=== PATIENT | male | born 1940 | race Caucasian/White ===

== ENCOUNTER 2017-03-24 14:43 | Inpatient (IN) | payer MEDICARE, OTHER ==
[~2017-03-24] VITALS: Ht 182.9 cm; Wt 76.8 kg
[2017-03-24 15:44] LABS: UDS - AMPHET NEGATIVE QUAL (NEGATIVE); UDS - BARB NEGATIVE QUAL (NEGATIVE); UDS - BENZO NEGATIVE QUAL (NEGATIVE); UDS - COCAINE NEGATIVE QUAL (NEGATIVE); UDS - METH NEGATIVE QUAL (NEGATIVE); UDS - OPIATE NEGATIVE QUAL (NEGATIVE); UDS - PCP NEGATIVE QUAL (NEGATIVE); UDS - THC NEGATIVE QUAL (NEGATIVE)
[2017-03-24 15:54] LABS: APPEARANCE HAZY (CLEAR); COLOR YELLOW (YELLOW); LEUKOCYTE ESTERASE 2+ (NEGATIVE); NITRITE NEGATIVE (NEGATIVE); PROTEIN TRACE mg/dL (NEGATIVE)
[2017-03-24 15:55] LABS: AMORPHOUS SEDIMENT <1+ /lpf (NONE SEEN); BACTERIA MODERATE /hpf (NONE SEEN); BILIRUBIN NEGATIVE (NEGATIVE); EPITHELIAL CELLS 0-5 /hpf (0-5); GLUCOSE NEGATIVE (NEGATIVE); KETONE NEGATIVE (NEGATIVE); RED CELLS - URINE 0-5 /hpf (0-5); UROBILINOGEN NORMAL (NORMAL)
[2017-03-24 16:03] LABS: BASOPHILS 0.4 % (0-2); EOSINOPHILS 1.6 % (0-7); HEMATOCRIT 33.6 % (42.0-54.0); HEMOGLOBIN 11.1 g/dL (13.5-17.5); IMMATURE GRANULOCYTES 0.2 % (0-5); LYMPHOCYTES 12.1 % (15-50); MCH 31.2 pg (26.0-34.0); MCV 94.4 fL (80.0-100.0); MEAN PLATELET VOLUME 11.1 fL (7.4-10.4); MONOCYTES 9.4 % (2-11); NEUTROPHILS 76.3 % (40-80); PLATELET COUNT 171 10x3/uL (130-400); RBC 3.56 10x6/uL (4.20-6.10); RDW 13.5 % (11.5-14.5); WBC 5.6 10x3/uL (4.8-10.8)
[2017-03-24 16:23] LABS: ALBUMIN 2.8 g/dL (3.4-5.0); ANION GAP 9.3 mmol/L (8-16); BILIRUBIN - TOTAL 0.23 mg/dL (0.2-1.3); CALCIUM 8.4 mg/dL (8.5-10.1); CARBON DIOXIDE 32.1 mmol/L (21.0-32.0); CREATININE - SERUM 1.4 mg/dL (0.6-1.3); POTASSIUM - SERUM 3.4 mmol/L (3.5-5.1); PROTEIN - SERUM 5.7 g/dL (6.4-8.2)
[2017-03-24 18:53] VITALS: BP 114/53; BMI 22.4
--- NOTE | 2017-03-24 19:30 | NUR ---
PATIENT ADMITTED TO [facility] FROM [facility], HE LIVES AT THE [facility], HIS DAUGHTER IS ROCÍO. PATIENT IS SEDATED ON ARRIVAL ON A STRETCHER, ASSISTED TO A BED BY STAFF IN HIS ROOM, REMOVED HIS WRIST WATCH AND A CHECK BOOK AND TWO PAPER CARDS AND GAVE TO HUGH. PATIENT IS UNKEMPT, HE IS DEMENTED WITH PARKINSON'S. ADMITTED FOR SUICIDAL IDEATIONS, DROVE W/C INTO TRAFFIC ON [employer] BY THE [facility]. PATIENT IS DEPRESSED AND HAS A LOT OF ANGER PER DAUGHTER.
[2017-03-24] MEDS ORDERED: LIPITOR80 MG PO (19:41)
[2017-03-24] MEDS ORDERED: BAYER CHEWABLE81 MG PO (19:41)
[2017-03-24] MEDS ORDERED: BUPROPION HCL100 MG PO (19:42)
[2017-03-24] MEDS ORDERED: DOK100 MG PO (19:43)
[2017-03-24] MEDS ORDERED: COREG 3.1253.125 MG PO (19:43)
[2017-03-24] MEDS ORDERED: MIDODRINE HCL10 MG PO (19:44)
[2017-03-24] MEDS ORDERED: FLORINEF 0.1 M0.1 MG PO (19:44)
[2017-03-24] MEDS ORDERED: NIACIN250 M1 PO (19:44)
[2017-03-24] MEDS ORDERED: DESERYL100 MG PO (19:45)
[2017-03-24] MEDS ORDERED: OMEPRAZOLE20 M1 PO (19:45)
[2017-03-24] MEDS ORDERED: RIVASTIGMINE1.5 MG PO (19:46)
[2017-03-24] MEDS ORDERED: VITAMIN B-12500 MC1 PO (19:46)
[2017-03-24] MEDS ORDERED: ZANAFLEX2 M1 PO (19:47)
[2017-03-24] MEDS ORDERED: ULTRAM50 MG PO (19:47)
[2017-03-24] MEDS ORDERED: ZOLOFT50 MG PO (19:49)
[2017-03-24] MEDS ORDERED: ARICEPT10 MG PO (19:49)
--- NOTE | 2017-03-24 20:00 | NUR ---
RECEIVED IN ROOM LYING IN BED WITH EYES CLOSED. NO SIGNS OR SYMTOMS OF DISTRESS NOTED. SEE ASSESSMENT FLOW SHEET FOR DETAILS. HAS SLEPT MOST OF NIGHT. WILL CONTINUE TO MONITOR.
--- NOTE | 2017-03-25 00:30 | NUR ---
INCONTINENT OF STOOL IN BRIEF. CLEANED AND CHANGED. USED URINAL TO VOID.
[2017-03-25 07:54] LABS: HEMOGLOBIN A1C 5.1 % (4.8-6.0)
[2017-03-25 07:57] LABS: CHOL - HDL RATIO 2.6 ratio (2.3-4.9); LDL-HDL RATIO 1.3 ratio (1.5-3.5); THYROID STIMULATING HORMONE 2.65 uIU/mL (0.36-3.74)
[2017-03-25 09:11] VITALS: BMI 22.3
[2017-03-25 09:35] VITALS: BP 145/89
--- NOTE | 2017-03-25 15:41 | NUR ---
B) PATIENT REFUSED ASSESSMENT THIS AM, HE REFUSED HIS MEDICATIONS, HE IS ANGRY, HE WANTS TO USE HIS CELL PHONE TO TAKE CARE OF PERSONAL MATTERS, EXPLAINED TO HIM THAT HE MAY SPEAK WITH THE PACKING ROOM INSPECTOR AND SHE CAN ASSIST HIM. DID LET HIM KNOW HIS DAUGHTER CALLED TWICE TODAY AND THAT SHE LOVES HIM. HE SAID "WELL I NEED TO TALK TO HER TOO". PATIENT IS CURSING AND ISOLATING HIMSELF. HE IS NOT ABLE TO HAVE A CONVERSATION WITHOUT THE "F" WORD. PATIENT IS IRRITABLE. DID TRY TO SPEAK WITH PATIENT ABOUT WHY HE IS HERE AND SOME OF THE RULES. PATIENT SAID "I JUST WANT TO BE LEFT ALONE AND I DO NOT WANT TO HEAR WHY I AM HERE". PATIENT HAS TRIED TO GET UP NUMEROUS TIMES TO STAND, BUT PATIENT IS UNABLE TO STAND. HE BECOMES IRRITABLE WHEN REDIRECTED. I) CONTINUE TO ASSESS, OFFER AND PROVIDE MEDS. R) PATIENT WATCHES TV, BUT NOT INTERACTING WITH STAFF OR PEERS EXCEPT TO YELL AT ONE TO DO SOMETHING FOR HIM AND THEN HE IS REDIRECTED. P) CONTINUE PLAN OF CARE.
[2017-03-25 19:30] VITALS: BP 122/81
--- NOTE | 2017-03-25 20:00 | NUR ---
RECEIVED IN DAYROOM SITTING IN RECLINER WATCHING TV, ISOLATED FROM PEERS. SPOKE WITH OTHER PATIENTS FIRST, THEN PATIENT ASKED IF I WAS THE NIGHT NURSE. HE WANTED HIS CELL PHONE. DISCUSSED THE RULES A LITTLE BIT. HE REFUSED TO TAKE HIS MEDS AT FIRST. QUIETLY TALKED WITH HIM AND CONVINCED HIM TO TAKE MEDS. NO CURSING OR YELLING AT STAFF TONIGHT. WILL CONTINUE PLAN OF CARE.
[2017-03-26 06:12] LABS: RAPID PLASMA REAGIN Non Reactive (Non Reactive)
[2017-03-26 07:23] LABS: FOLATE (FOLIC ACID) - SERUM 11.5 ng/mL (>3.0)
[2017-03-26 09:02] VITALS: BP 143/83
--- NOTE | 2017-03-26 15:45 | NUR ---
PATIENT BECOMING BELIGERENT. DR. LEE SPOKE WITH HIM ABOUT TAKING HIS MEDS AND HE WAS SPEAKING TO HER IN A TERSE MANNER. SHE SAID "WHY DON'T YOU TAKE YOUR MEDS" HE SAYS "BECAUSE I DON'T F'ING WANT TO THAT'S WHY, I'VE TAKEN THEM FOR 10 DAMN YEARS" DR. LEE SAID "WELL, THAT IS WHY YOU ARE HERE" HE BECAME CRANKY AND SHE WALKED OUT OF THE ROOM TO ASSESS ANOTHER PATIENT. HE THEN STARTED TAKING THE ALARM AND PAD OUT FROM UNDER HIM AND PULLED IT OUT. BARRINGTON LAKSHMI T POLITELY EXPLAINED THAT HE NEEDED TO LEAVE IT ON FOR HIS SAFETY HE IS UNSTEADY. PATIENT HAS BEEN UPTO WALK WITH STAFF ASSIST AND HE IS VERY UBSTEADY, WOBBLY, BUT PATIENT IS BELIGERANT AND WILL DEFY ANYONE THAT SAYS ANYTHING DIFFERENTLY THAN HE DOES. PATIENT BEGAN CURSING STAFF, STAFF TRYING TO PUT PAD AND ALARM ON. PATIENT NOT COOPERATIVE. STAFF PUT PATIENT CLOSE TO THEM AT THE TABLE SINCE HE WOULD NOT COOPERATE, BUT PATIENT BEGAN KICKING THE TABLE AND CURSING. PATIENT THEN SAYS "WHERE'S THE MED NURSE, ARE YOU GOING TO GIVE ME THOSE F'ING MEDS, YOU WANTED ME TO TAKE SO BADLY" PATIENT CAUSING A SCENE IN THE DAY ROOM, ACTING POORLY, NOT REDIRECTABLE. PROVIDED PATIENT PRN ATIVAN 1 MG IM WITH HALDOL 2 MG IM IN RIGHT HIP.
--- NOTE | 2017-03-26 16:15 | NUR ---
PATIENT CALM NOW, EATING SHERBERT. HE IS NOT CURSING, HE HAS THE PAD AND ALARM ON AND HE IS NOT KICKING THE TABLE.
[2017-03-26 19:30] VITALS: BP 102/79
--- NOTE | 2017-03-27 03:15 | NUR ---
B) Recieved patient in a gerichair in the day room, sleepy and arrouses to name, calm and no behaviors noted this shift, I) Administered perscribed medication crushed in apple sauce, monitored for falls and safety, R) Medication compliant, patient ambulated to room with walker, resting now quietly, P) Continue plan of care.
[2017-03-27 08:57] VITALS: BP 142/86
[2017-03-27 11:31] LABS: BASOPHILS 0.2 % (0-2); EOSINOPHILS 2.1 % (0-7); HEMOGLOBIN 11.7 g/dL (13.5-17.5); IMMATURE GRANULOCYTES 0.2 % (0-5); LYMPHOCYTES 13.5 % (15-50); MCH 30.7 pg (26.0-34.0); MCHC 32.5 g/dL (31.0-37.0); MCV 94.5 fL (80.0-100.0); MONOCYTES 7.8 % (2-11); NEUTROPHILS 76.2 % (40-80); PLATELET COUNT 153 10x3/uL (130-400); RBC 3.81 10x6/uL (4.20-6.10); RDW 13.8 % (11.5-14.5); WBC 5.6 10x3/uL (4.8-10.8)
--- NOTE | 2017-03-27 18:00 | NUR ---
Patient in dayroom, oriented to self, time, place and situation. When asked if he had thoughts of harming himself, he said "how can I here?". Patient was then asked to make verbal contract to not self harm which he agreed to. Continue to monitor, continue plan of care.
[2017-03-27 19:30] VITALS: BP 136/84
--- NOTE | 2017-03-27 22:31 | NUR ---
B) Recieved patient sitting in the day room, alert and oriented to self and hospital, ambulates with assist , calm, I) Administered perscribed medications, monitored for falls and safety, R) Medication compliant, restless at times, demanding at times, P) Continue plan of care.
[2017-03-28 07:00] VITALS: BP 108/77
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
--- NOTE | 2017-03-28 13:10 | NUR ---
Patient has an impaired gait, strongly encouraged to use a walker but patient refuses. He is also unplugging his maribell alarm. Patient reoriented. Continue to monitor.
[2017-03-28 19:42] VITALS: BP 145/82
--- NOTE | 2017-03-28 20:04 | NUR ---
RECEIVED IN HALLWAY. SITTING IN A CHAIR. SOCIALIZING WITH A PEER. CALM AND COOPERATIVE WITH CARE AND ASSESSMENTS. DENIES THOUGHTS OF SELF HARM. ENCOURAGE TO EXPRESS NEEDS AND FEELINGS. CONTINUES TO SIT IN HALLWAY. SOCIALIZING AT TIMES. CONTINUE PLAN OF CARE
[2017-03-29 07:00] VITALS: BP 126/73
[2017-03-29 08:09] LABS: VITAMIN D 25 HYDROXY 29.6 ng/mL (30.0-100.0)
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
--- NOTE | 2017-03-29 17:13 | NUR ---
Patient is oriented to self, time, situation and place. He denies suicidal ideation, contract made with nurse to not self harm. Patient is non-aggressive and requested shave and haircut. Calm and cooperative with medication. Encouraged to use walker to ambulate but patient refuses. Continue to monitor
[2017-03-29 19:42] VITALS: BP 153/75
--- NOTE | 2017-03-29 19:53 | NUR ---
RECEIVED IN BEDROOM. LAYING IN BED WITH EYES CLOSED. RESPONDS TO VOICE. CALM AND COOPERATIVE WITH CARE AND ASSESSMENTS. DENIES THOUGHTS OF SELF HARM. ENCOURAGE TO EXPRESS NEEDS. CONTINUES TO REST IN BED WITH EYES CLOSED. CONTINUE PLAN OF CARE
[2017-03-30 08:00] VITALS: BP 119/60
--- NOTE | 2017-03-30 09:50 | NUR ---
ALERT AND ORIENTED TIMES FOUR, CALM AND PLEASANT. COOPERATIVE WITH ASSESSMENT. PATIENT HAS BEEN EDUCATED ON FALL PRECAUTIONS, USE OF CHAIR ALARM AND AMBULATING WITH WALKER. HE REFUSES TO KEEP CHAIR ALARM IN CHAIR AND JUMPS UP OUT OF HIS SEAT WITHOUT USING HIS WALKER. MONITORED FOR SAFETY WITH SAFETY MAINTAINED. REFUSES TO COOPERATIVE WITH FALL RISK PRECAUTIONS. WHEN ASKED ABOUT SUICIDIAL IDEATIONS. " I HAVE THEM EVERY DAY FOR 30 YEARS NOW." ADMITS TO NO PLAN. CONTRACTED FOR NO SELF HARM. CONTINUE TO MONITOR FOR SAFETY AND SUICIDIAL IDEATIONS. CONTINUE PLAN OF CARE.
--- NOTE | 2017-03-30 13:01 | PN ---
PATIENT:JEAN PIERRE JO MEDICAL RECORD: [id number] LOCATION:[facility] ADMISSION DATE: 03/24/17 PROGRESS NOTE DATE OF SERVICE: 03/29/2017 SUBJECTIVE: The patient's case was discussed with staff. He has no new complaint. OBJECTIVE: The patient surprisingly scored 24/[address] Rebecca Georges's testing indicating mild cognitive impairment. Nevertheless, I do not think he is capable of making good decisions and based on his longitudinally history, I think he has a lifelong pattern of making bad choices. He says he wants to go live in an apartment, which I do not think is realistic. He has limited insight about his situation. He denies that he would seek to harm himself or others. I am going to discontinue his trazodone since he is sleeping very well at night. TRANSINT:[id number] Voice Confirmation ID: [id number] DOCUMENT ID: [id number] SLOAN RIDER MD at 1301 CC: [id number] DICTATION DATE: 03/29/17 1449 TUTORING CLINICIAN: 03/29/17 2256 ADM IN [facility] [address] [place] [address]
[2017-03-30 19:50] VITALS: BP 136/78
--- NOTE | 2017-03-31 01:18 | NUR ---
B) Recieved sitting in the day room watching TV, alert and oriented to self and hospital, cooperative with care, no behaviors noted, contracts for safety, I) Administered perscribed medication, monitored for safety, R) Medication compliant, resting quietly now, P) Continue plan of care.
[2017-03-31 08:00] VITALS: BP 148/96
--- NOTE | 2017-03-31 14:00 | NUR ---
B) PATIENT IS AWAKE AND ALERT, HE IS INTERACTING IN GROUPS AND ACTIVITIES AND HE DOES AMBULATE, BUT HE IS UNSTEADY. HE IS CALM. HE IS ORIENTED X3. I) PROVIDE PRESCRIBED MEDS. R) PATIENT IS COMPLIANT WITH MEDS AND UNIT MILIEU, HE HAS BEEN MORE COOPERATIVE. P) CONTINUE PLAN OF CARE.
--- NOTE | 2017-03-31 14:32 | NUR ---
Nutrition follow-up: Diet: Regular PO intake ~75% average of last 9 meals No new labs to assess Wt: 165# Last BM charted 03/24 RDN following.
[2017-03-31 19:05] VITALS: BP 143/82
--- NOTE | 2017-03-31 23:27 | NUR ---
B) recieved patient in the day room alert and oriented to self and being in a hospital, calm and cooperative with care and assessment, I) Administered perscribed medications whole with water, monitored for falls and safety, R) Medication compliant, resting now quietly in bed, P) Continue Plan of Care.
[2017-04-01 08:00] VITALS: BP 154/84
--- NOTE | 2017-04-01 14:28 | NUR ---
B) PATIENT IS ACTING CHILDLIKE TODAY, HE HAS COMPLAINED THAT STAFF DOES NOT WANT TO DO ANYTHING FOR HIM AND HE DID NOT EAT BREAKFAST. THEN AT LUNCH HE GOT UPSET WITH STAFF AGAIN AND HE THREW HIS TRAY ON THE FLOOR THEN LAY HIMSELF ON THE FLOOR. I) PROVIDED PATIENT 1 MG ATIVAN IM ION LEFT DELTOID. R) PATIENT HAS BEEN COMPLIANT WITH MEDS TODAY. P) CONTINUE PLAN OF CARE AND MONITOR EFFECTS OF ATIVAN.
--- NOTE | 2017-04-01 15:30 | NUR ---
PATIENT IS SLEEPING NOW IN THE DAY ROOM.
[2017-04-01 19:30] VITALS: BP 126/65
--- NOTE | 2017-04-01 22:21 | PN ---
PATIENT:JEAN PIERRE JO MEDICAL RECORD: [id number] LOCATION:[facility] ADMISSION DATE: 03/24/17 PROGRESS NOTE DATE OF SERVICE: 04/01/2017 SUBJECTIVE: No new complaint. OBJECTIVE: Case management is in the process of making referral to rehabilitation. The patient has stabilized from a psychiatric standpoint. He has chronic Parkinson disease. On exam, mood is slightly irritable. Affect is shallow and brittle. Speech is terse. Content of thought is negative for overt psychosis. Sensorium shows no change. ASSESSMENT: No change in diagnosis. PLAN: 1. Continue all current medications. 2. Continue supportive therapy. TRANSINT:[id number] Voice Confirmation ID: [id number] DOCUMENT ID: [id number] CHANTAL MASTERSON III, MD at 2221 CC: [id number] DICTATION DATE: 04/01/17 1154 SHOOK MACHINE OPERATOR: 04/01/172050 ADM IN [facility] [place] [id number] [place] [address]
[2017-04-02 09:59] VITALS: BP 138/78
--- NOTE | 2017-04-02 17:00 | NUR ---
ALERT AND ORIENTED TO NAME AND PLACE. PATIENT HAS REFUSED MEDICATIONS, BREAKFAST AND LUNCH TODAY. HAS SLEPT MAJORITY OF THE DAY. FLAT AFFECT, VERY LITTLE CONVERSATION AND WITHDRAWN. AT SUPPER TIME HE WOKE UP, BEGAN TO WATCH TV, AND ADJUSTED VILUME LOUD IT WOULD GO AND WALKED AROUND THE ROOM AND SOCIALIZED WITH A COUPLE OF PEERS, COOPERATIVE WITH REQUEST TO TURN TV DOWN THEN HE SAT THERE AND WATCHED TV. NO SUICIDIAL IDEATIONS. SAFETY MAINTAINED. CONTINUE PLAN OF CARE.
[2017-04-02 19:30] VITALS: BP 152/94
--- NOTE | 2017-04-02 22:00 | NUR ---
CALM AND COOPERTIVE WITH CARE AND ASSESSMENT. SEE ASSESSMENT FLOW SHEET FOR DETAILS. NO SUICIDAL IDEATIONS. WILL CONTINUE TO MONITOR.
--- NOTE | 2017-04-02 23:30 | NUR ---
RECHECKED B/P PER PATIENT REQUEST = . PATIENT REFUSED HIS MEDS EARLIER.
--- NOTE | 2017-04-02 23:45 | NUR ---
RECHECKED B/P = 166/93. GAVE ATIVAN 0.5 MG PO TO CALM HIM AND ULTRAM 50 MG PO FOR ARTHRITIS PAIN ALL OVER.
--- NOTE | 2017-04-03 06:48 | PN ---
PATIENT:JEAN PIERRE JO MEDICAL RECORD: [id number] LOCATION:[facility] ADMISSION DATE: 03/24/17 PROGRESS NOTE DATE OF SERVICE: 04/02/2017 SUBJECTIVE: No new complaint. OBJECTIVE: Staff reports the patient did sleep quite well last night. He ____ presented any new problems. On exam, mood is for the most part euthymic, affect is ____ and constricted. Speech is very terse. Content of thought focuses only on somatic concerns. Sensorium is unchanged. ASSESSMENT: No change in diagnosis. PLAN: 1. Maintain current medication. 2. Supportive therapy. TRANSINT:[id number] Voice Confirmation ID: [id number] DOCUMENT ID: [id number] CHANTAL MASTERSON III, MD at 0648 CC: [id number] DICTATION DATE: 04/02/17 1507 EDITING INTERN: 04/02/[address] [facility] [address] [place] [address]
[2017-04-03 07:00] VITALS: BP 169/101
--- NOTE | 2017-04-03 18:13 | NUR ---
PT WAS THROWING HIS DRAWERS TO THE BEDSIDE TABLE OUT INTO THE MIDDLE OF THE BEDROOM FLOOR THIS MORNING AT THE BEGINNING OF THIS SHIFT. HE WAS GIVEN AN ATIVAN 1MG IM IN HIS LEFT DORSAL GLUTEAL AT 0800. SECURITY WAS CALLED FOR ASSIST. HE DID SETTLE DOWN AFTER SECURITY GOT TO HIS ROOM. HE HAS BEEN RESTING ALL DAY LONG.
[2017-04-03 19:30] VITALS: BP 132/80
--- NOTE | 2017-04-03 21:22 | NUR ---
RECEIVED IN DAYROOM. LAYING IN RECLINER WATCHING TV. CALM AND COOPERATIVE WITH CARE AND ASSESSMENTS. DENIES SELF HARM AT THIS TIME. ENCOURAGE TO EXPRESS NEEDS. CONTINUES TO SIT QUIETLY IN RECLINER. CONTINUE PLAN OF CARE
[2017-04-04 07:00] VITALS: BP 148/73
--- NOTE | 2017-04-04 13:05 | PN ---
PATIENT:JEAN PIERRE JO MEDICAL RECORD: [id number] LOCATION:[facility] ADMISSION DATE: 03/24/17 PROGRESS NOTE DATE OF SERVICE: 03/31/2017 SUBJECTIVE: The patient's case was discussed with staff. He has no new complaint. OBJECTIVE: The patient is in good behavioral control with limited insight about his condition. He does tolerate his medicines well. He has no active thoughts of harming himself or others. I anticipate he can be transitioned out of the hospital soon. Placement is being sought at rehab and I think that is an excellent idea since he has clearly lost strength and endurance and would be helpful for him to see if some of that can be gained since he is insisting on living in a situation that is more independent than he really can handle at this time. TRANSINT:[id number] Voice Confirmation ID: [id number] DOCUMENT ID: [id number] SLOAN RIDER MD at 1305 CC: [id number] DICTATION DATE: 03/31/17 162 GRAPHIC ENGINEER: 03/31/17 7309 ADM IN [facility] [address] [place] [address]
--- NOTE | 2017-04-04 15:57 | NUR ---
Patient in dayroom in recliner. He is refusing to eat meals but is eating sherbert in between. He is compliant with medication however, he is isolates from peers and group. When encouraged to talk, he started crying and said he had nothing to live for and nobody wanted him. Patient encouraged to express his feelings. Patient refuses to use walker. Continue to monitor for safety
[2017-04-04 20:02] VITALS: BP 175/86
--- NOTE | 2017-04-04 20:09 | NUR ---
RECEIVED IN HALLWAY. SITTING IN RECLINING CHAIR OUTSIDE OF NURSES STATION. CALM AND COOPERATIVE WITH CARE AND ASSESMENTS. DENIES THOUGHTS OF SELF HARM. ENCOURAGE TO EXPRESS NEEDS. CONTINUES TO SIT QUIETLY IN HALLWAY OUTSIDE OF NURSES STATION. CONTINUE PLAN OF CARE
[2017-04-05 07:00] VITALS: BP 176/90
--- NOTE | 2017-04-05 14:09 | PN ---
PATIENT:JEAN PIERRE JO MEDICAL RECORD: [id number] LOCATION:[facility] ADMISSION DATE: 03/24/17 PROGRESS NOTE DATE OF SERVICE: 04/04/2017 SUBJECTIVE: The patient's case was discussed with staff. He has no new complaint. OBJECTIVE: The patient is in good behavioral control with poor insight about his condition. He tolerates his medicines well. ASSESSMENT: No change in diagnosis. PLAN: Current medicines and therapies have been reviewed and will be maintained. He is not eating very well and I am going to start him on Megace to assist with this. TRANSINT:[id number] Voice Confirmation ID: [id number] DOCUMENT ID: [id number] SLOAN RIDER MD at 1409 CC: [id number] DICTATION DATE: 04/04/17 1348 PULP HOUSE SUPERVISOR: 04/04/17 2136 ADM IN [facility] [address] [place] [address]
--- NOTE | 2017-04-05 17:34 | NUR ---
ORIENTED TO PERSON AND PLACE. PT CONTINUES TO REFUSE TO EAT AND HAVING DELUSIONS ABOUT SOMEONE TELLING HIM NOT TO EAT. MEDICATIONS ADMINISTERED ORDERED. PT MED COMPLIANT. PT CONTINUES TO STATED THAT HE WANTS TO AND WILL DO SO BY STARVING TO . COPING SKILLS DISCUSSED WITH PT BUT HE REFUSED EDUCATION. PT DID CONTRACT FOR SAFETY WHILE IN THE HOSPITAL. FALL PRECAUTIONS MAINTAINED. PT DID DRINK SOME ORANGE JUICE AND WATER BUT REFUSED TO EAT ANY MEALS. HE DID HAVE A SNACK. FALL PRECAUTIONS MAINTAINED. NO AGGRESSION NOTED. WILL CONTINUE TOMONITOR AND CONTINUE WITH PLAN OF CARE.
[2017-04-05 19:30] VITALS: BP 147/78
--- NOTE | 2017-04-05 22:38 | NUR ---
RECEIVED IN HALLWAY. SITTING IN RECLINER WITH EYES CLOSED. SOCIALIZING WITH STAFF AT TIMES. CALM AND COOPERATIVE WITH CARE AND ASSESSMENTS. DENIES THOUGHTS OF SELF HARM. NO SIGNS OF AGGRESSION. RESTING IN BED WITH EYES CLOSED. CONTINUE PLAN OF CARE
[2017-04-06 09:06] VITALS: BP 156/95
--- NOTE | 2017-04-06 12:41 | PN ---
PATIENT:JEAN PIERRE JO MEDICAL RECORD: [id number] LOCATION:[facility] ADMISSION DATE: 03/24/17 PROGRESS NOTE DATE OF SERVICE: 04/05/2017 SUBJECTIVE: The patient's case was discussed with staff. He has no new complaint. OBJECTIVE: The patient denies any intent to harm others, but asked me for a dollar and fifty cents. When asked what he needs with a dollar and fifty cents, he says he wants to buy a 357 magnum bullet so he can shoot himself in the head. When that was discussed for a few minutes, he then said that he wished that we would allow him to go to [place] because they have a law that allow you to kill yourself and he thinks it is stupid that [place] does not let people do this. ASSESSMENT: No change in diagnoses. PLAN: The patient is seriously and significantly depressed. I am going to double his Zoloft to 100 mg daily. TRANSINT:[id number] Voice Confirmation ID: [id number] DOCUMENT ID: [id number] SLOAN RIDER MD at 1241 CC: [id number] DICTATION DATE: 04/05/17 1424 AEROSPACE PROJECT MANAGER: 04/05/17 1805 ADM IN [place] [address] [place] [address]
--- NOTE | 2017-04-06 15:12 | NUR ---
ORIENTED TO PERSON, PLACE. DENIES SI. COPING SKILLS REVIEWED WITH PT. PT EATING NOW. PT HAS BEEN AMBULATING MORE TODAY AND EXPRESSING HIS NEEDS WITHOUT AGITATION. THANKING STAFF FOR CARE. GAVE POSITIVE REINFORCEMENT FOR APPROPRIATE BEHAVIOR. MEDICATIONS ADMINISTERED ORDERED. FALL PRECAUTIONS MAINTAINED. WILL CONTINUE TO MONITOR AND CONTINUE WITH PLAN OF CARE.
[2017-04-06 19:30] VITALS: BP 110/60
--- NOTE | 2017-04-07 01:44 | NUR ---
B) Recieved patient in the day room in a gerichair, alert and oriented to self and being in a hospital, calm and cooperative with care and assessment, I) Administered perscribed medications, monitored for safety, R) Medication compliant, resting quietly in bed, P) Continue plan of care.
--- NOTE | 2017-04-07 09:33 | NUR ---
B) PATIENT IS NEGATIVE AND MAKES MULTIPLE C/O ALREADY THIS AM, HE HAS SAID "I'VE ORDERED SAUSAGE AND EGGS EVERY MORNING I STILL DON'T HAVE IT" I LOOKED AT HIS MENU AND IT DID NOT HAVE SAUSAGE ORDERED. PATIENT MAKING C/O STAFF NOT ORDERING WHAT HE REQUESTED. LET PATIENT TALK, TO VERBALIZE FEELINGS. I) PROVIDE PRESCRIBED MEDS. R) PATIENT IS COMPLIANT WITH MEDS. P) CONTINUE PLAN OF CARE.
--- NOTE | 2017-04-07 14:12 | PN ---
PATIENT:JEAN PIERRE JO MEDICAL RECORD: [id number] LOCATION:[facility] ADMISSION DATE: 03/24/17 PROGRESS NOTE DATE OF SERVICE: 04/06/2017 SUBJECTIVE: The patient's case was discussed with staff. He has no new complaint. OBJECTIVE: The patient is in good behavioral control with limited insight about his condition. He does tolerate his medicines well. He denies that he would seek to harm himself. I did not remind him about our conversation yesterday, but based on the context of the conversation today, I do not see a reason why he has changed his mind, nothing has change about his circumstances except his attitude. I am certainly happy his attitude has changed and again efforts are being made to find appropriate placement. He now tells me he wants to buy a home in [place], hire someone to stay there with him and go there and live. This may be possible at some point in the distant future, but is not a practical discharge plan for acute care. TRANSINT:[id number] Voice Confirmation ID: [id number] DOCUMENT ID: [id number] SLOAN RIDER MD at 1412 CC: [id number] DICTATION DATE: 04/06/17 1252 HAND MIXER: 04/06/[address] [facility] [address] [place] [address]
[2017-04-07 19:54] VITALS: BP 151/76
--- NOTE | 2017-04-07 22:00 | NUR ---
RECEIVED IN DAYROOM SITTING IN RECLINER. CALM AND COOPERATIVE WITH ASSESSMENT. ASSESSMENT COMPLETED PER FLOW SHEET. FALL PRECAUTIONS MAINTAINED. CONTINUE PLAN OF CARE.
--- NOTE | 2017-04-08 13:37 | PN ---
PATIENT:JEAN PIERRE JO MEDICAL RECORD: [id number] LOCATION:[facility] ADMISSION DATE: 03/24/17 PROGRESS NOTE DATE OF SERVICE: 04/07/2017 SUBJECTIVE: The patient's case was discussed with staff. He has no new complaint. OBJECTIVE: The patient is denying that he would seek to harm himself or others. He has limited insight about his situation. He still has an unrealistic expectation about his discharge indicating that he wants to live independently with just some occasional help. Again, this is unrealistic, but I have discussed it with the treatment team and the director social welfare is going to assist here. I have reviewed his medications and will maintain them. He did become angry yesterday and threw a tray across the room. I think his long-term prognosis is guarded. TRANSINT:[id number] Voice Confirmation ID: [id number] DOCUMENT ID: [id number] SLOAN RIDER MD at 1337 CC: [id number] DICTATION DATE: 04/07/17 1446 WET PRESS TENDER: 04/08/17 0015 ADM IN [facility] [address] [place] [address]
--- NOTE | 2017-04-08 13:59 | NUR ---
Nutrition follow-up: Diet: REgular PO intake has decreased over the last few days labs reviewed Will continue to provide food choices and honor food preferences. RDN following.
--- NOTE | 2017-04-08 16:00 | NUR ---
B) PATIENT IS JUST SLEEPING MOST OF THE DAY, HE WANTS SOME ONE TO CALL HIS DAUGHTER TO GET EVERYTHING STRAIGHT, EXPLAINED TO HIM THAT THE BLEACH CHLORINATOR WILL BE HERE TUESDAY AND HE CAN DISCUSS ANY PLANS WITH HER. PATIENT CONTINUES TO TRY TO MANIPULATE AND DEMAND AND BE CHILDLIKE. I) PROVIDE PRESCRIBED MEDS. R) PATIENT IS COMPLIANT WITH MEDS. P) CONTINUE POC.
[2017-04-08 19:30] VITALS: BP 110/60
--- NOTE | 2017-04-09 03:18 | NUR ---
B) Recieved patient in the day room alert and oriented to self and being in a hospital, watching TV, I) Administered perscribed medications, monitored for falls and safety, R) Medication compliant, no outburst or behaviors noted, P) Continue plan of care.
--- NOTE | 2017-04-09 06:56 | PN ---
PATIENT:JEAN PIERRE JO MEDICAL RECORD: [id number] LOCATION:[facility] ADMISSION DATE: 03/24/17 PROGRESS NOTE DATE OF SERVICE: 04/08/2017 SUBJECTIVE: The patient's case was discussed with staff. He has no new complaint. OBJECTIVE: The patient denies intent to harm himself or others. He generally tolerates his medicines well. ASSESSMENT: No change in diagnoses. PLAN: Current medicines and therapies have been reviewed, both will be maintained. TRANSINT:[id number] Voice Confirmation ID: [id number] DOCUMENT ID: [id number] SLOAN RIDER MD at 0656 CC: [id number] DICTATION DATE: 04/08/17 1428 SALESPERSON PARTS: 04/08/17 2345 ADM IN [address] [address]
[2017-04-09 11:50] VITALS: BP 136/91
[2017-04-09 19:30] VITALS: BP 112/59
--- NOTE | 2017-04-10 00:10 | NUR ---
B) Recieved patient in the day room, alert and oriented to self and being in a hospital, calm and cooperative, I) Administered perscribed medication, monitored for safety and falls, R) Medication compliant, ambulates with unsteadty gait, P) Continue plan of care.
[2017-04-10 07:00] VITALS: BP 126/63
[2017-04-10 16:12] VITALS: Ht 182.9 cm; Wt 76.8 kg
--- NOTE | 2017-04-10 16:12 | NUR ---
ORIENTED TO PERSON AND PLACE. REDIRECTED NEEDED. NO AGGRESSION. DENIES SI. MEDICATIONS GIVEN ORDERED. FALL PRECAUTIONS MAINTAINED. WILL CONTINUE TO MONITOR AND CONTINUE WITH PLAN OF CARE.
[2017-04-10 19:30] VITALS: BP 140/61
--- NOTE | 2017-04-10 21:13 | NUR ---
RECEIVED IN DAYROOM. LAYING IN RECLINER WITH EYES OPEN. CALM AND COOPERATIVE WITH CARE AND ASSESSMENTS. DENIES THOUGHT OF SELF HARM. ENCOURAGE TO EXPRESS NEEDS. CONTINUE TO LAY IN RECLINER WITH EYES OPEN. CONTINUE PLAN OF CARE.
[2017-04-11 07:00] VITALS: BP 143/77
--- NOTE | 2017-04-11 14:10 | PN ---
PATIENT:JEAN PIERRE JO MEDICAL RECORD: [id number] LOCATION:[facility] ADMISSION DATE: 03/24/17 PROGRESS NOTE DATE OF SERVICE: 04/09/2017 SUBJECTIVE: The patient's case was discussed with staff. He has no new complaint. OBJECTIVE: The patient is in good behavioral control. He has poor insight about his condition. He is tolerating his medications well. ASSESSMENT: No change in diagnoses. PLAN: The patient could be transitioned out of the hospital soon. There is a major impediment regarding his living situation. He is making demands about where he wants to go that are not realistic for an acute discharge plan. TRANSINT:[id number] Voice Confirmation ID: [id number] DOCUMENT ID: [id number] SLOAN RIDER MD at 1410 CC: [id number] DICTATION DATE: 04/09/17 1245 RAIL SWITCHMAN: 04/09/17 2131 ADM IN [facility] [id number] [place] [address]
--- NOTE | 2017-04-11 14:28 | NUR ---
ORIENTED TO PERSON AND PLACE. NO AGGRESSION. CALM, COOPERATIVE WITH CARE. MEDICATIONS COMPLIANT. DENIES SI. REDIRECTED NEEDED. FALL PRECAUTIONS MAINTAINED. WILL CONTINUE TO MONITOR AND CONTINUE WITH PLAN OF CARE.
[2017-04-11 19:30] VITALS: BP 121/67
--- NOTE | 2017-04-11 20:08 | NUR ---
RECEIVED IN DAYROOM. SITTING IN RECLINER IN MIDDLE OF ROOM. NOT SOCIALIZING WITH PEERS. RESTING EYES CLOSED. RESPONDS TO VOICE. CALM AND COOPERATIVE WITH CARE AND ASSESMENTS. DENIES SELF HARM. NO SIGNS OF AGGRESSION. CONTINUES TO REST QUIETLY IN CHAIR. CONTINUE PLAN OF CARE
--- NOTE | 2017-04-11 21:41 | NUR ---
YELLING AT T. JUMPED OUT OF BED AND ATTEMTED TO HIT HER.MOVED DOWN TO FLOOR FOR HIS SAFETY. THEN RETURNED TO BED BY STAFF. YELLING OUT AT TIMES AFTER BEING MOVED BACK TO BED. CONTINUE TO REDIRECT NEEDED.
[2017-04-12 07:00] VITALS: BP 138/89
--- NOTE | 2017-04-12 11:33 | NUR ---
PT CONTINUES TO BE ARGUMENTATIVE ABOUT DISCHARGE BUT HAS AGREED TO DISCHARGE TO FACILITY IN [place]. DISCHARGE PLANNING TO BE COMPLETED BY SW. ORIENTED TO PERSON, PLACE, AND TIME. PT STATED "I CAN STAY HERE, I CAN LIVE HERE". EXPLAINED TO THE PT THAT HE NEEDS TO ADDRESS DISCHAGE PLANNING BECAUSE HE CAN NOT LIVE IN THE HOSPITAL. DENIES SI. MEDICATIONS ADMINISTERED ORDERED. FALL PRECAUTIONS IN PLACE. WILL CONTINUE TO MONITOR AND CONTIUE WITH PLAN OF CARE.
[2017-04-12] MEDS ORDERED: MEGACE40 MG PO (14:44)
[2017-04-12] MEDS ORDERED: SINEMET 10/101 UDTAB PO (14:45)
[2017-04-12] MEDS ORDERED: FERROUS SULFAT325 MG PO (14:45)
[2017-04-12] MEDS ORDERED: VITAMIN D5000 UNIT PO (14:46)
[2017-04-12] MEDS ORDERED: ZOLOFT100 MG PO (14:46)
--- NOTE | 2017-04-12 14:52 | PN ---
PATIENT:JEAN PIERRE JO MEDICAL RECORD: [id number] LOCATION:[facility] ADMISSION DATE: 03/24/17 PROGRESS NOTE DATE OF SERVICE: 04/11/2017 SUBJECTIVE: The patient's case was discussed with staff. He has no new complaint. OBJECTIVE: The patient denies intent to harm himself or others. He is tolerating his medicines well. ASSESSMENT: No change in diagnoses. PLAN: If this patient's level of improvement is maintained, I anticipate he can reasonably be transitioned out of the hospital soon. TRANSINT:[id number] Voice Confirmation ID: [id number] DOCUMENT ID: [id number] SLOAN RIDER MD at 1452 CC: [id number] DICTATION DATE: 04/11/17 1447 JUKE BOX MECHANIC: 04/12/17 0200 ADM IN [facility] [address] [place] [address]
[2017-04-12 19:30] VITALS: BP 144/60
--- NOTE | 2017-04-12 21:12 | NUR ---
RECEIVED IN DAYROOM. SITTING IN CHAIR WITH STAFF AND PEERS. NOT SOCIALIZING. CALM AND COOPERATIVE WITH CARE AND ASSESSMENTS. NO SIGNS OF AGGRESSION. RESTING IN BED EYES CLOSED AT THIS TIME. CONTINUE PLAN OF CARE
[2017-04-13 08:03] VITALS: BP 139/66
--- NOTE | 2017-04-13 14:44 | NUR ---
B) PATIENT LAYING AROUND, HE IS NOT INTERACTING WITH PEERS, MOSTLY TALKS TO ONE PERSON DURING THE DAY, BUT NOT SAYING MUCH. HE IS FLAT TO BLUNTED IN AFFECT. I) PROVIDE PRECRIBED MEDS. R) PATIENT IS COMPLIANT WITH MEDS. P) CONTINUE POC.
--- NOTE | 2017-04-13 17:34 | PN ---
PATIENT:JEAN PIERRE JO MEDICAL RECORD: [id number] LOCATION:[facility] ADMISSION DATE: 03/24/17 PROGRESS NOTE DATE OF SERVICE: 04/12/2017 SUBJECTIVE: The patient's case was discussed with staff. He has no new complaint. OBJECTIVE: The patient is disorganized, but not suicidal or psychotic. He is tolerating his medicines well. ASSESSMENT: No change in diagnoses. PLAN: The patient will be transitioned out of the hospital in the next day or two, assuming this level of improvement is maintained. TRANSINT:[id number] Voice Confirmation ID: [id number] DOCUMENT ID: [id number] SLOAN RIDER MD at 1734 CC: [id number] DICTATION DATE: 04/12/17 1451 SIZING MACHINE TENDER: 04/12/17 2353 ADM IN [place] [facility] [address] [place] [address]
[2017-04-13 20:00] VITALS: BP 122/59
--- NOTE | 2017-04-14 01:55 | NUR ---
B) Recieved patien tin the day room watching TV, alert and oriented to self and beiing in a hospital, calm and cooperative this shift, I) Administerred perscribed medications, monitored for falls and safety, R) Medication compliant, resting quietly now in bed, P) Continue plan of care.
--- NOTE | 2017-04-14 09:30 | NUR ---
B) PATIENT IS AWAKE AND DRESSED READY TO D/C, OFFERED PATIENT SHOWER EARLIER THIS AM, PATIENT DECLINED. PATIENT IS PACKED AND HE IS READY TO LEAVE THE UNIT. PATIENT CAN AMBULATE, BUT HE IS UNSTEADY. PATIENT IS ORIENTED X3, BUT HE MOSTLY LAYS AROUND AND DOES NOT SPEAK WITH OTHER PEERS, HE DOES LIKE TO WATCH THE [place] IS RIGHT AND THE NEWS. I) PROVIDE MEDS, FAX ALL D/C ORDERS AND MAR TO [facility]. R) PATIENT IS COMPLIANT TO TAKE MEDS. P) CONTINUE DISCHARGE PLAN.
--- NOTE | 2017-04-14 10:05 | NUR ---
STAFF FROM [facility] HERE TO LACE ROLLER PATIENTT, ALL BELONGINGS PROVIDED, HARD COPY OF MEDS AND D/C ORDER GIVEN TO UPPER EXTREMITY SURGEON.
--- NOTE | 2017-04-14 10:06 | NUR ---
CALLED MEDS TO [facility], ORDERED FOR 30 DAYS ONLY, NO REFILLS.
--- NOTE | 2017-04-14 10:16 | NUR ---
CALLED REPORT TO MIKHAIL AT [facility].
--- NOTE | 2017-04-14 13:50 | PN ---
PATIENT:JEAN PIERRE JO MEDICAL RECORD: [id number] LOCATION:[facility] ADMISSION DATE: 03/24/17 PROGRESS NOTE DATE OF SERVICE: 04/13/2017 SUBJECTIVE: The patient's case was discussed with staff. He has no new complaint. OBJECTIVE: The patient denies intent to harm himself or others. He generally tolerates his medicines well. Eye contact is poor. Concentration is fair. ASSESSMENT: No change in diagnoses. PLAN: The patient is not showing evidence of acute dangerousness and will be transitioned out of the hospital tomorrow morning if this level of improvement is maintained. TRANSINT:[id number] Voice Confirmation ID: [id number] DOCUMENT ID: [id number] SLOAN RIDER MD at 1350 CC: [id number] DICTATION DATE: 04/13/171756 REMOTE SENSING SCIENTIST: 04/14/17 0241 DIS IN 04/14/17 [facility] [address] [place] [address]
--- NOTE | 2017-04-18 14:09 | PN ---
PATIENT:JEAN PIERRE JO MEDICAL RECORD: [id number] LOCATION:[facility] ADMISSION DATE: 03/24/17 PROGRESS NOTE DATE OF SERVICE: 04/14/2017 SUBJECTIVE: The patient's case was discussed with staff. He has no new complaint. OBJECTIVE: The patient is in good behavioral control, although cognitively impaired. ASSESSMENT: No change in diagnoses. PLAN: The patient has no thoughts of harming himself or others. He will be transitioned out of the hospital today. His long-term prognosis is guarded. TRANSINT:[id number] Voice Confirmation ID: [id number] DOCUMENT ID: [id number] SLOAN RIDER MD at 1409 CC: [id number] DICTATION DATE: 04/14/17 1417 PUBLIC HEALTH REPRESENTATIVE: 04/15/17 0156 DIS IN 04/14/17 [place] [id number] [place] [address]
== END 2017-04-14 10:17 | disposition home or self-care (01) | DRG 57 ==
LOC: D.ER 14:43 → D.PSYCH 16:40
PROVIDERS: Emergency Medicine; Family Medicine; ADMIT Psychiatry & Neurology Psychiatry
DX: G30.1 Alzheimer's disease with late onset (principal); F02.81 Dementia in other diseases classified elsewhere, unspecified severity, with behavioral disturbance; G20 Parkinson's disease; K59.00 Constipation, unspecified; K21.9 Gastro-esophageal reflux disease without esophagitis; Z91.81 History of falling; Z86.73 Personal history of transient ischemic attack (TIA), and cerebral infarction without residual deficits; I50.9 Heart failure, unspecified; I95.1 Orthostatic hypotension; E55.9 Vitamin D deficiency, unspecified; F32.9 Major depressive disorder, single episode, unspecified; E78.5 Hyperlipidemia, unspecified; I25.10 Atherosclerotic heart disease of native coronary artery without angina pectoris; Z95.5 Presence of coronary angioplasty implant and graft; D64.9 Anemia, unspecified